=== PATIENT | male | born 1975 | race Two or more races ===

== ENCOUNTER 2017-05-04 12:52 | Emergency (ER) | payer SELFPAY ==
[~2017-05-04] VITALS: Ht 167.6 cm; Wt 76.7 kg
[2017-05-04 13:15] VITALS: BP 146/91
--- NOTE | 2017-05-04 13:56 | PHYS DOC ---
Past Medical History Past Medical History: No Pertinent History Past Surgical History: No Surgical History Alcohol Use: None Drug Use: None Adult General Chief Complaint Chief Complaint: KNEE SWELLING [facility] HPI Patient is a 41 year old male presents emergency department stating he has been having pain and discomfort to his left knee for the last week. He states that he had woken up with the pain and discomfort. He denies any falls injuries or trauma. He denies any numbness or tingling down to the lower extremity. He states that he is unable to stand or bear weight on the left knee. He does complain of swelling in redness. He has taken something at home for pain with which the family think this Tylenol with minimal relief. Patient is Welsh- speaking only daily members are interpreting at this time. Patient was noted to have decreased range of motion to the left knee. Review of Systems Review of Systems Constitutional: Denies fever or chills [] Eyes: Denies change in visual acuity, redness, or eye pain [] HENT: Denies nasal congestion or sore throat [] Respiratory: Denies cough or shortness of breath [] Cardiovascular: No additional information not addressed in HPI [] GI: Denies abdominal pain, nausea, vomiting, bloody stools or diarrhea [] : Denies dysuria or hematuria [] Musculoskeletal: Denies back pain complain of left knee pain [] Integument: Denies rash or skin lesions [] Neurologic: Denies headache, focal weakness or sensory changes [] Endocrine: Denies polyuria or polydipsia [] Allergies Allergies Allergies Coded Allergies Type Severity Reaction Last Updated Verified No Known Drug Allergies 05/04/17 No Physical Exam Physical Exam Constitutional: Well developed, well nourished, no acute distress, non-toxic appearance. [] HENT: Normocephalic, atraumatic, bilateral external ears normal, oropharynx moist, no oral exudates, nose normal. [] Eyes: PERRLA, EOMI, conjunctiva normal, no discharge. [] Neck: Normal range of motion, no tenderness, supple, no stridor. [] Cardiovascular:Heart rate regular rhythm Lungs & Thorax: Bilateral breath sounds clear to auscultation [] Skin: Warm, dry, no erythema, no rash. [] Back: No tenderness Extremities: Left knee tenderness noted over the patellar area. Patient with swelling around the anterior part of the knee with redness noted over the patella., no cyanosis, no clubbing, ROM intact, no edema. Peripheral pulses 2+ cap refill less than 2 seconds. Negative valgus negative Brooks negative Hillary been. Neurologic: Alert and oriented X 3, normal motor function, normal sensory function, no focal deficits noted. [] Psychologic: Affect normal, judgement normal, mood normal. [] Current Patient Data Vital Signs Vital Signs Date Time Temp Pulse Resp B/P (MAP) Pulse Ox O2 Delivery O2 Flow Rate FiO2 05/04/17 13:15 98.3 68 20 97 Room Air 98.3 EKG EKG [] Radiology/Procedures Radiology/Procedures [][facility] [address] [place] [address] IMAGING REPORT Signed PATIENT: ESTHELA MCCARTHY ACCOUNT: [id number] : 1975 LOCATION: ER AGE: 41 SEX: M EXAM STATUS: REG ER ORD. PHYSICIAN: ETHAN RESTREPO APRN REASON: knee swelling PROCEDURE: KNEE LEFT 4V Examination: 4 views of the left knee History: History of left knee swelling Comparison: None available Findings: The alignment of the knee joint grossly appears unremarkable. There is no acute fracture identified. Small knee joint effusion identified. Mild soft tissue prominence or swelling identified anterior to the knee joint in the region of prepatellar and infrapatellar region. Impression: 1. No acute osseous findings. 2. Small knee joint effusion. 3. Mild soft tissue prominence or swelling identified anterior to the knee joint, nonspecific could be soft tissue swelling or bursitis. DICTATED and SIGNED BY: SELMA WOLFE MD DATE: 05/04/17 1358 CC: ETHAN RESTREPO APRN; NO PCP; NON,STAFF ~ Course & Med Decision Making Course & Med Decision Making Pertinent Labs and Imaging studies reviewed. (See chart for details) [] Dragon Disclaimer Dragon Disclaimer This electronic medical record was generated, in whole or in part, using a voice recognition dictation system. Departure Departure Impression: Primary Impression: Left knee pain Disposition: 01 HOME, SELF-CARE Condition: STABLE Referrals: NO PCP (PCP) Patient Instructions: Crutch Use, [id number], Knee Effusion, [id number], Knee Immobilizer-Brief, Knee Pain, [id number] Additional Instructions: Activity as tolerated. Wear the knee immobilizer until you follow-up with orthopedic. Ice packs on 20 minutes off 20 minutes several times a day. Elevation as much as possible. Ibuprofen 800 mg every 8 hours with food stop taking few develop an upset stomach. Follow-up with orthopedic within the next week. Return back to emergency prior signs symptoms of become worse. ETHAN RESTREPO [employer] May 04, 2017 13:56
== END 2017-05-04 14:30 | disposition home or self-care (01) ==
LOC: ER 12:52
DX: M25.562 Pain in left knee (principal); R22.42 Localized swelling, mass and lump, left lower limb
CPT/HCPCS: 29505; 73564; 99284-25